=== PATIENT | female | born 1990 | race American Indian/Alaskan Native ===

== ENCOUNTER 2020-07-11 17:54 | Emergency (ER) | payer BC, MEDICAID ==
[2020-07-11 19:48] VITALS: BP 147/86
== END 2020-07-11 22:10 | disposition left against medical advice (07) ==
LOC: ED 17:54
DX: S99.921A Unspecified injury of right foot, initial encounter (principal); Z53.21 Procedure and treatment not carried out due to patient leaving prior to being seen by health care provider; X58.XXXA Exposure to other specified factors, initial encounter; Y93.89 Activity, other specified; Y92.89 Other specified places as the place of occurrence of the external cause; Y99.8 Other external cause status